=== PATIENT | female | born 1955 | race Caucasian/White ===

== ENCOUNTER 2017-07-07 07:07 | Inpatient (IN) | payer OTHER ==
[~2017-07-07] VITALS: Ht 162.6 cm; Wt 74.8 kg
--- NOTE | 2017-07-07 07:52 | ED SYNCOPE COMPLAINT ---
History of Present Illness General Chief Complaint: Nausea, Vomiting, Diarrhea Stated Complaint: V/N/D PER PT PASSED OUT WHILE ON TOILET HIT FACE Source: patient, family, old records Exam Limitations: no limitations Vital Signs & Intake/Output Vital Signs & Intake/Output Vital Signs Date Time Temp Pulse Resp B/P B/P Pulse O2 O2 Flow FiO2 Mean Ox Delivery Rate 07/07 1250 98.7 110 20 114/75 98 Room Air 07/07 1100 94 102/60 02 1017 98.3 103 20 125/76 97 Room Air 07/07 0713 97.4 114 15 123/86 97 Room Air Room Air Allergies Coded Allergies: No Known Allergies (07/07/17) Reconcile Medications No Known Home Medications Triage Note: PT TO ED FOR C/C OF MULTIPLE EPISODES OF VOMITING AND DIARRHEA SINCE 99. AROUND 0, PT HAD A SYNCOPAL EPISODE WHEN PT WAS VOMITING AND THEN PASSED OUT (UNKNOWN HOW LONG), AND WOKE UP WITH BRUISE TO L EYE AREA. +NECK PAIN. DENIES CHANGE IN VISION. Triage Nurses Notes Reviewed? yes Timing: recent history Context: multiple episodes of diarrhea Loss of Consciousness: unsure Associated Symptoms: nausea/vomiting HPI: 61-year-old female with no medical history presents to the ER for evaluation stating that since 1:00 this morning she's had multiple episodes of nausea vomiting and diarrhea associated with lower abdominal cramping aching pain. The patient states around 4:30 in the morning she was sitting on a toilet when she states the next thing she recalls she woke up with her face against the vanity which is in front of the toilet. She is unsure how long she passed out for. She denies any associated chest pain shortness of breath. She states she's felt lightheaded this morning. She denies tobacco or alcohol use. The patient has a history of a tubal ligation and abdominoplasty. She is also complaining of bilateral neck pain and bruising around her left eye from the head strike into the vanity. She has not taken anything for symptoms. No vision changes epistaxis. No back arm or leg pain. (Yuliana HARDY,Billy) Past History Travel History Traveled to [place] past 21 day No Medical History Any Pertinent Medical History? none Neurological: NONE EENT: NONE Cardiovascular: NONE Respiratory: NONE Gastrointestinal: NONE Hepatic: NONE Renal: NONE Musculoskeletal: NONE Psychiatric: NONE Endocrine: NONE Blood Disorders: NONE Cancer(s): NONE Surgical History Surgical History: tubal ligation, ABDOMINOPLASTY Psychosocial History What is your primary language Latvian Tobacco Use: Quit >30 days ago ETOH Use: occasional use Illicit Drug Use: denies illicit drug use Family History Hx Contributory? No (Billy Agarwal) Review of Systems Review of Systems Constitutional: Reports: see HPI. Comments Review of systems: See HPI, All other systems negative. Constitutional, no chills no fever, HEENT: no sore throat no congestion Cardiovascular: No chest pain Skin: no rashes, no change in skin Respiratory: No dyspnea no cough no sputum GI: SEE HPI : No dysuria No hematuria, no frequency Muscle skeletal: No joint pain, no back pain Neurologic: headache Psych: No stress Heme/endocrine: No bruising Immunology: No lymphadenopathy (Billy Agarwal) Physical Exam Physical Exam General Appearance: well developed/nourished, alert, awake Cranial Nerves: normal hearing, normal speech, PERRL Comments: Well-developed well-nourished person in no acute distress HEENT: Small area of ecchymosis noted under the left eye there is no hyphema, the rest of the face is atraumatic and nontender no scalp hematoma, Normal EENT exam; PERRL, EOMI, no nystagmus. moist mucous membranes. Neck: Supple, nontender, normal range of motion without pain or tenderness Back: Nontender. Full range of motion Cardiovascular: Regular rate and rhythms no murmur Respiratory: No respiratory distress. Patient speaking in full complete sentences. Breath sounds clear to auscultation bilaterally: NO W/R/R Abdomen: Soft, nontender nondistended, no appreciable organomegaly. Normal bowel sounds. No rebound/guarding, Extremity: No edema, full range of motion of extremities, 5 out of 5 strength noted to bilateral upper and lower extremities, full sensation noted to b/l ue and le Neuro: Alert oriented x3, motor sensory normal, cranial nerves II through XII grossly intact. There were no obvious focal neurologic abnormalities. Skin: No appreciable rash on exposed skin, skin is warm and dry. Psych: Mood and affect is normal, memory and judgment is normal. Core Measures ACS in differential dx? Yes CVA/TIA Diagnosis: No Sepsis Present: No Sepsis Focused Exam Completed? No (Yuliana HARDY,Billy) Progress Differential Diagnosis: orthostatic syncope, other valvular disease, vasodepressor syncope, gastroenteritis, colitis, diverticulitis, ischemic colitis, electrolyte abnormalty, dehydaration, ami Plan of Care: Orders Procedure Date/time Status Regular Diet 07/07 L Complete Heart Healthy Diet 07/07 D Active TROPONIN LEVEL 07/07 1500 Active ED Holding Orders 07/07 1356 Active Admit to inpatient 07/07 1356 Active EKG 07/07 1307 Active ECHOCARDIOGRAM 07/07 1257 Active Lab Add-on Test 07/07 1254 Active Pathway - chart 07/07 1236 Active House Staff 07/07 1236 Active Patient Data 07/07 1231 Active ED Holding Orders 07/07 1218 Active Vital Signs 07/07 1218 Active Code Status 07/07 1218 Active Add-on Test (ER Only) 07/07 1027 Active EKG 07/07 1027 Active Add-on Test (ER Only) 07/07 1018 Active Telemetry/Legal Department Manager 07/07 1013 Active PARTIAL THROMBOPLASTIN TIME 07/07 1013 Complete PROTHROMBIN TIME 07/07 1013 Complete Add-on Test (ER Only) 07/07 1007 Active Add-on Test (ER Only) 07/07 0949 Active ETHANOL 07/07 0902 Complete Intake & Output 07/07 0829 Active MISTAKE 07/07 0720 Active URINALYSIS 07/07 0720 Complete TROPONIN LEVEL 07/07 0720 Complete LIPASE 07/07 0720 Complete COMPREHENSIVE METABOLIC PANEL 07/07 0720 Complete CBC WITHOUT DIFFERENTIAL 07/07 0720 Complete AMYLASE 07/07 0720 Complete EKG 07/07 0717 Active VTE Mechanical Prophylaxis 07/07 UNK Active MISTAKE 07/07 UNK Active Current Medications Sig/[place] Start time Last Medication Dose Stop Time Status Admin Enoxaparin Sodium 40 MG DAILY 07/08 1000 AC (Lovenox) Ibuprofen 800 MG TID 07/07 1600 AC (Motrin) Acetaminophen 500 MG Q6P PRN 07/07 1400 AC (Tylenol) Laboratory Tests 07/07/17 1420: Urine Color YEL, Urine Clarity CLEAR, Urine pH 6.5, Ur Specific Mershon 1.010, Urine Protein NEG, Urine Ketones NEG, Urine Nitrite NEG, Urine Bilirubin NEG, Urine Urobilinogen 0.2, Ur Leukocyte Esterase NEG, Ur Microscopic EXAM NOT REQUIRED, Urine Hemoglobin NEG, Urine Glucose NEG 07/07/17 1130: PT 11.6, INR 1.11, APTT 24 L 07/07/17 0902: Anion Gap 12, Estimated GFR > 60, BUN/Creatinine Ratio 40.0 H, Glucose 121 H, Calcium 9.1, Total Bilirubin 0.8, AST 20, ALT 21, Alkaline Phosphatase 65, Troponin I < 0.01, Total Protein 6.8, Albumin 4.0, Globulin 2.8, Albumin/ Globulin Ratio 1.4, Amylase 52, Lipase 70, CBC w Diff MAN DIFF ORDERED, RBC 5.12 , MCV 87.8, MCH 29.1, MCHC 33.1, RDW 13.0, MPV 7.7, Gran % 96.2 H, Lymphocytes % 1.8 L, Monocytes % 1.5 L, Eosinophils % 0.4, Basophils % 0.1, Absolute Granulocytes 8.2 H, Segmented Neutrophils 86 H, Band Neutrophils 7 H, Absolute Lymphocytes 0.2 L, Lymphocytes 3 L, Monocytes 4, Absolute Monocytes 0.1, Absolute Eosinophils 0, Absolute Basophils 0, Platelet Estimate ADEQUATE, Normocytic RBCs VERIFIED, Normochromic RBCs VERIFIED, Serum Alcohol < 10.0 orthos negative, labs ordered, pt med with iv fluids, zofran 4mg iv, pepcid 20mg iv, tylenol 1g iv. ct ordered 950 I discussed with joanna and her son her ct findings and labs to date, pain persists, morphine 2mg iv ordered, c collar placed. call placed to neurosurg 1010 CASE D/W DR PAREDES WHO REVIEWED THE CT SCAN, ADVISED TO GET CTA OF NECK, LONG NO VESSEL INJURY PATIENT COULD BE DISCHARGED AND FOLLOW UP WITH HIM AN OUTPT FROM HIS STANDPOINT- FX ARE NOT UNSTABLE. NO NEED FOR EMERGENT MRI HOWEVER WOULD LIKE CTA AT THIS TIME. HE DOES NOT FEEL PT REQUIRES TRANSFER AT THIS TIME BASED ON CSPINE INJURIES. I DISCUSSED WITH THE PT AND HER SON PLAN OF CARE, SHE IS RESTING IN NAD AT THIS TIME As nurse was attempting to place second IV line patient had witnessed syncopal episode she remained normal sinus on the monitor Dr. Lyle at bedside, IV fluids are running patient immediately came to speaking in full complete sentences no slurred speech no neuro deficits. 1220 DR PAREDES IN DEPT TO EVAL PT I discussed the patient hurt CAT scan results she denies abdominal pain resting comfortably Dr. Lyle spoke with Dr. Guevara we'll admit to telemetry. Diagnostic Imaging: Viewed by Me: CT Scan. Discussed w/RAD: CT Scan. Radiology Impression: PATIENT: JOANNA HUERTA PRESENT AGE: 61 PATIENT ACCOUNT NO: [id number] : 54 LOCATION: ER ORDERING PHYSICIAN: Billy HARDY SERVICE DATE: 07/07/17 EXAM TYPE: CAT - CT ABD & PELVIS W/O IV CONTRAS EXAMINATION: CT ABDOMEN AND PELVIS WITHOUT CONTRAST CLINICAL INFORMATION: Left lower quadrant abdominal pain. Nausea, vomiting, diarrhea. Syncope. Presumptive diagnosis: Colitis, diverticulitis. COMPARISON: None TECHNIQUE: Multidetector volumetric imaging was performed from the superior aspect of the liver through the pubic symphysis. Sagittal and coronal reformatted images were obtained on the technologist's workstation. DLP: 314.37 mGy-cm FINDINGS: LUNG BASES: The visualized lung bases are unremarkable. LIVER, GALLBLADDER, AND BILIARY TREE: The liver is normal in size, shape, and attenuation. No focal hepatic lesion or biliary ductal dilatation is present. The gallbladder is unremarkable with no evidence of radiopaque gallstones, gallbladder wall thickening, or obvious pericholecystic inflammatory changes. PANCREAS: Unremarkable. SPLEEN: Unremarkable. ADRENAL GLANDS: Unremarkable. KIDNEYS AND URETERS: The kidneys are normal in size, shape, and attenuation. No hydronephrosis, hydroureter, or calculi are seen. No perinephric stranding. BLADDER: Unremarkable. GASTROINTESTINAL TRACT: There are scattered colonic diverticula. There is no evidence of diverticulitis. There is no definite colonic wall thickening to suggest colitis. The appendix appears normal. There are 2 loops of jejunum in the mid abdomen which are upper normal in caliber. There is no definite bowel wall thickening. The small bowel is otherwise unremarkable. ABDOMINAL WALL: No significant hernia is appreciated. LYMPH NODES: Normal. VASCULAR: Unremarkable. PELVIC VISCERA: Unremarkable. OSSEOUS STRUCTURES : There is severe degenerative disc disease at L3-L4 with a mild grade 1 anterolisthesis of L3 on L4. There is mild degenerative disc disease at L4-L5. IMPRESSION: 1. Mild colonic diverticulosis with no evidence of diverticulitis. No colonic wall thickening to suggest suggest colitis. 2. There are 2 loops of jejunum in the mid abdomen which are upper normal in caliber but there is no evidence of small bowel wall thickening. 3. No other evidence of inflammatory process in the abdomen or pelvis. DICTATED BY: Jem Joshi MD DATE/TIME DICTATED:07/07/17932 PLACEMENT SPECIALIST:EVIE DATE/TIME TRANSCRIBED:932 CONFIDENTIAL, DO NOT COPY WITHOUT APPROPRIATE AUTHORIZATION. < Electronically signed in Other Vendor System> SIGNED BY: Jem Joshi MD 07/07/17 1003, PATIENT: JOANNA HUERTA PRESENT AGE: 61 PATIENT ACCOUNT NO: [id number] : 54 LOCATION: [facility] ORDERING PHYSICIAN: Billy HARDY SERVICE DATE: 07/07/17 EXAM TYPE: CAT - CT CERV SPINE WO IV CONTRAST; CT HEAD WO IV CONTRAST CT HEAD WITHOUT IV CONTRAST CT CERVICAL SPINE WITHOUT IV CONTRAST INDICATION: Fall. COMPARISON: None available. TECHNIQUE: Multidetector CT acquisitions of the head and cervical spine were obtained without IV contrast. Multiplanar reformats were acquired and utilized for image interpretation. FINDINGS: HEAD: There is no intracranial hemorrhage, hydrocephalus, extra-axial surface collection, midline shift, or other herniation pattern. Hdez to white matter differentiation is diffusely maintained without evidence of an evolved acute territorial infarct. The basilar cisterns are preserved. No significant soft tissue abnormality. No acute osseous abnormality. The paranasal sinuses and the mastoid air cells are well-aerated. CERVICAL SPINE: There is a fracture through the C4 spinous process extending to the undersurface of the right C4 lamina. There is also a fracture through the posterolateral wall of the right C4 bony foramen transversarium that can be followed with a CTA of the neck to exclude a vertebral artery dissection. Small osteophyte versus inferior endplate avulsion fragment on the left at C4. Given this finding, a MRI of the cervical spine would be helpful in excluding the presence of ligamentous injury and/or epidural collections. There is also a fracture through the C5 spinous process with a small spinous process avulsion fracture fragment posteriorly. There is slight anterolisthesis of C2 on C3 and C3 on C4. There is mild anterolisthesis of C7 on T1, T1 and T2, and T2 on T3. There is slight superior endplate height loss at T3 of indeterminate age. The craniocervical and atlantoaxial articulations are normal. There is no prevertebral soft tissue swelling. Multinodular thyroid gland. The visualized lung apices are clear. IMPRESSION: - There is a fracture through the C4 spinous process extending to the undersurface of the right C4 lamina. There is also a fracture through the posterolateral wall of the right C4 bony foramen transversarium that can be followed with a CTA of the neck to exclude a vertebral artery dissection. Small osteophyte versus inferior endplate avulsion fragment on the left at C4. Given this finding, a MRI of the cervical spine would be helpful in excluding the presence of ligamentous injury and/or epidural collections. - There is also a fracture through the C5 spinous process with a small spinous process avulsion fracture fragment posteriorly. - There is slight superior endplate height loss at T3 of indeterminate age. - No acute intracranial abnormality. -Multinodular thyroid gland. DICTATED BY: Dirk Murillo MD DATE/TIME DICTATED:07/07/17925 PLACEMENT SPECIALIST:EVIE DATE/TIME TRANSCRIBED:07/07/17925 CONFIDENTIAL, DO NOT COPY WITHOUT APPROPRIATE AUTHORIZATION. <Electronically signed in Other Vendor System> SIGNED BY: Dirk Murillo MD 07/07/1741, PATIENT: JOANNA HUERTA PRESENT AGE: 61 PATIENT ACCOUNT NO: [id number] : 54 LOCATION: [facility] ORDERING PHYSICIAN: Billy HARDY SERVICE DATE: 07/07/17 EXAM TYPE: CAT - CT NECK ANGIOGRAM CT ANGIOGRAM NECK CLINICAL INFORMATION: Rule out vertebral artery dissection. C4-C5 fracture. COMPARISON: Cervical spine CT performed earlier the same day. TECHNIQUE: Test bolus sequences followed by administration of 125 mL of Omnipaque 350 intravenous contrast. Helical imaging was performed in the axial plane of the neck. The data was processed at the cardiovascular radiologic technologist workstation for generation of MIP sequences. Three-dimensional volume rendered reformatted images were also generated at an offline 3-D workstation. Stenoses graded per NASCET criteria. FINDINGS: There is a 3 great vessel branch configuration off of the aortic arch. The great vessel origins are widely patent. The proximal left subclavian artery is tortuous. The right vertebral artery is dominant. There is no evidence of traumatic arterial injury. There are no intraluminal filling defects and there is no luminal caliber change along the course of the vertebral arteries on either side. The common carotid arteries, the carotid bifurcations, and the cervical internal carotid artery segments are widely patent. The intracranial arterial vasculature is unremarkable. Stable appearing fracture through the C4 spinous process extending to the undersurface of the right C4 lamina. There is also a fracture through the posterolateral wall of the right C4 bony foramen transversarium. Small osteophyte versus inferior endplate avulsion fragment on the left at C4. Given this finding, a MRI of the cervical spine would be helpful in excluding the presence of ligamentous injury and/or epidural collections. There is also a fracture through the C5 spinous process with a small spinous process avulsion fracture fragment posteriorly. Degenerative changes throughout the cervical spine are described in detail on the recent cervical spine CT. Stable appearing superior end plate height loss at T3 of indeterminate age. The imaged upper lungs are clear. There is a 1.4 cm right thyroid lobe nodule that should be further assessed with a nonemergent ultrasound. There are no additional significant soft tissue findings within the neck. IMPRESSION: - Stable appearing C4 and C5 fractures as discussed in detail on the cervical spine CT performed earlier today. - There is no evidence of traumatic arterial injury/arterial dissection. No significant arterial stenoses and no acute arterial occlusions within the neck. - Stable appearing indeterminate age superior endplate height loss at T3. - There is a 1.4 cm right thyroid lobe nodule that should be further assessed with a nonemergent ultrasound. DICTATED BY: Dirk Murillo MD DATE/ TIME DICTATED:07/07/171199 PLACEMENT SPECIALIST:EVIE DATE/TIME TRANSCRIBED: 07/07/171199 CONFIDENTIAL, DO NOT COPY WITHOUT APPROPRIATE AUTHORIZATION. < Electronically signed in Other Vendor System> SIGNED BY: Dirk Murillo MD 07/07/17 1213 Initial ED EKG: stach at 100, no acute st seg changes, normala axis Rhythm Strip: normal sinus rhythm (Billy Agarwal) Comments: During a blood draw patient began to feel very lightheaded and had a witnessed syncopal episode. Patient was on telemetry and she remained in normal sinus rhythm during. An EKG was obtained which showed sinus rhythm with no ST-T changes. Patient's pain in her blood pressure was 70 over palp. Once patient was laid supine she came to. (Norman Lyle MD) Departure Departure Time of Disposition: 1225 Disposition: STILL A PATIENT Condition: Stable Referrals: Yaima Rueda MD (PCP/Family) Departure Forms: Customer Survey General Discharge Information Prescriptions: Current Visit Scripts No Known Home Medications Admission Note Spoke With: James Nava MD Documentation of Exam: Documentation of any treatments & extenuating circumstances including Concerns Regarding Discharge (functional status, medication knowledge or non-compliance, living conditions, etc.) that warrant an admission rather than observation: Neurosurgery consult cardiology consult telemetry monitoring IV fluids IV pain medication possible PT consult premature discharge would BE medically harmful (Billy Agarwal) Departure Clinical Impression Primary Impression: C4 cervical fracture Qualifiers: Encounter type: initial encounter Fracture type: closed Fracture morphology: other fracture Secondary Impressions: C5 vertebral fracture Qualifiers: Encounter type: initial encounter Fracture type: closed Fracture morphology: unspecified fracture morphology Nausea vomiting and diarrhea Syncope Qualifiers: Syncope type: unspecified Qualified Code: R55 - Syncope and collapse Admission Note Documentation of Exam: Documentation of any treatments & extenuating circumstances including Concerns Regarding Discharge (functional status, medication knowledge or non-compliance, living conditions, etc.) that warrant an admission rather than observation: Observation Note Rationale for Observation: My rational for observation is as follows . PA/GRADER MEAT Co-Sign Statement Statement: ED Attending supervision documentation- [X] I saw and evaluated the patient. I have also reviewed all the pertinent lab results and diagnostic results. I agree with the findings and the plan of care as documented in the PA's/GRADER MEAT's documentation. [X] I have reviewed the ED Record and agree with the PA's/GRADER MEAT's documentation. [] Additions or exceptions (if any) to the PAs/GRADER MEAT's note and plan are summarized below: [Patient had a syncopal episode with no prodromal symptoms this morning. Patient has a C4 and C5 fracture. Patient has been seen by neurosurgery. Patient will require admission to the hospital for telemetry monitoring and serial enzymes. She will need cardiology evaluation and workup. She will need physical therapy evaluation and workup. It is unknown at this time with the patient will require short-term rehabilitation.] (Norman Lyle MD) Critical Care Note Critical Care Note Critical Care Time: 30-74 min (Billy Agarwal)
[2017-07-07 09:11] LABS: ABSOLUTE BASOPHIL COUNT 0 /CUMM (0.0-0.2); ABSOLUTE EOSINOPHIL COUNT 0 /CUMM (0.0-0.7); ABSOLUTE GRANULOCYTE CT 8.2 /CUMM (1.4-6.5); ABSOLUTE LYMPH COUNT 0.2 /CUMM (1.2-3.4); ABSOLUTE MONOCYTE COUNT 0.1 /CUMM (0.10-0.60); BASOPHIL % 0.1 % (0.0-2.0); EOSINOPHIL % 0.4 % (0-5); MEAN CORPUSCULAR HGB 29.1 PG (27.0-31.0); MEAN CORPUSCULAR HGB CONC 33.1 G/DL (33.0-37.0); MEAN CORPUSCULAR VOLUME 87.8 FL (81.0-99.0); MEAN PLATELET VOLUME 7.7 FL (7.4-10.4); PLATELET COUNT 211 /CUMM (130-400); RED BLOOD CELL CT 5.12 /CUMM (4.20-5.40); WHITE BLOOD CELL COUNT 8.6 /CUMM (4.8-10.8)
[2017-07-07 09:34] LABS: GRANULOCYTE % 96.2 % (42.2-75.2)
--- NOTE | 2017-07-07 09:41 | CT SCAN REPORT ---
CT HEAD WITHOUT IV CONTRAST CT CERVICAL SPINE WITHOUT IV CONTRAST INDICATION: Fall. COMPARISON: None available. TECHNIQUE: Multidetector CT acquisitions of the head and cervical spine were obtained without IV contrast. Multiplanar reformats were acquired and utilized for image interpretation. FINDINGS: HEAD: There is no intracranial hemorrhage, hydrocephalus, extra-axial surface collection, midline shift, or other herniation pattern. Hdez to white matter differentiation is diffusely maintained without evidence of an evolved acute territorial infarct. The basilar cisterns are preserved. No significant soft tissue abnormality. No acute osseous abnormality. The paranasal sinuses and the mastoid air cells are well-aerated. CERVICAL SPINE: There is a fracture through the C4 spinous process extending to the undersurface of the right C4 lamina. There is also a fracture through the posterolateral wall of the right C4 bony foramen transversarium that can be followed with a CTA of the neck to exclude a vertebral artery dissection. Small osteophyte versus inferior endplate avulsion fragment on the left at C4. Given this finding, a MRI of the cervical spine would be helpful in excluding the presence of ligamentous injury and/or epidural collections. There is also a fracture through the C5 spinous process with a small spinous process avulsion fracture fragment posteriorly. There is slight anterolisthesis of C2 on C3 and C3 on C4. There is mild anterolisthesis of C7 on T1, T1 and T2, and T2 on T3. There is slight superior endplate height loss at T3 of indeterminate age. The craniocervical and atlantoaxial articulations are normal. There is no prevertebral soft tissue swelling. Multinodular thyroid gland. The visualized lung apices are clear. IMPRESSION: - There is a fracture through the C4 spinous process extending to the undersurface of the right C4 lamina. There is also a fracture through the posterolateral wall of the right C4 bony foramen transversarium that can be followed with a CTA of the neck to exclude a vertebral artery dissection. Small osteophyte versus inferior endplate avulsion fragment on the left at C4. Given this finding, a MRI of the cervical spine would be helpful in excluding the presence of ligamentous injury and/or epidural collections. - There is also a fracture through the C5 spinous process with a small spinous process avulsion fracture fragment posteriorly. - There is slight superior endplate height loss at T3 of indeterminate age. - No acute intracranial abnormality. -Multinodular thyroid gland.
--- NOTE | 2017-07-07 10:03 | CT SCAN REPORT ---
EXAMINATION: CT ABDOMEN AND PELVIS WITHOUT CONTRAST CLINICAL INFORMATION: Left lower quadrant abdominal pain. Nausea, vomiting, diarrhea. Syncope. Presumptive diagnosis: Colitis, diverticulitis. COMPARISON: None TECHNIQUE: Multidetector volumetric imaging was performed from the superior aspect of the liver through the pubic symphysis. Sagittal and coronal reformatted images were obtained on the technologist's workstation. DLP: 314.37 mGy-cm FINDINGS: LUNG BASES: The visualized lung bases are unremarkable. LIVER, GALLBLADDER, AND BILIARY TREE: The liver is normal in size, shape, and attenuation. No focal hepatic lesion or biliary ductal dilatation is present. The gallbladder is unremarkable with no evidence of radiopaque gallstones, gallbladder wall thickening, or obvious pericholecystic inflammatory changes. PANCREAS: Unremarkable. SPLEEN: Unremarkable. ADRENAL GLANDS: Unremarkable. KIDNEYS AND URETERS: The kidneys are normal in size, shape, and attenuation. No hydronephrosis, hydroureter, or calculi are seen. No perinephric stranding. BLADDER: Unremarkable. GASTROINTESTINAL TRACT: There are scattered colonic diverticula. There is no evidence of diverticulitis. There is no definite colonic wall thickening to suggest colitis. The appendix appears normal. There are 2 loops of jejunum in the mid abdomen which are upper normal in caliber. There is no definite bowel wall thickening. The small bowel is otherwise unremarkable. ABDOMINAL WALL: No significant hernia is appreciated. LYMPH NODES: Normal. VASCULAR: Unremarkable. PELVIC VISCERA: Unremarkable. OSSEOUS STRUCTURES: There is severe degenerative disc disease at L3-L4 with a mild grade 1 anterolisthesis of L3 on L4. There is mild degenerative disc disease at L4-L5. IMPRESSION: 1. Mild colonic diverticulosis with no evidence of diverticulitis. No colonic wall thickening to suggest suggest colitis. 2. There are 2 loops of jejunum in the mid abdomen which are upper normal in caliber but there is no evidence of small bowel wall thickening. 3. No other evidence of inflammatory process in the abdomen or pelvis.
[2017-07-07 11:55] LABS: PT 11.6 SEC (9.4-12.5); PTT 24 SEC (25-37)
--- NOTE | 2017-07-07 12:13 | CT SCAN REPORT ---
CT ANGIOGRAM NECK CLINICAL INFORMATION: Rule out vertebral artery dissection. C4-C5 fracture. COMPARISON: Cervical spine CT performed earlier the same day. TECHNIQUE: Test bolus sequences followed by administration of 125 mL of Omnipaque 350 intravenous contrast. Helical imaging was performed in the axial plane of the neck. The data was processed at the public health technologist workstation for generation of MIP sequences. Three-dimensional volume rendered reformatted images were also generated at an offline 3-D workstation. Stenoses graded per NASCET criteria. FINDINGS: There is a 3 great vessel branch configuration off of the aortic arch. The great vessel origins are widely patent. The proximal left subclavian artery is tortuous. The right vertebral artery is dominant. There is no evidence of traumatic arterial injury. There are no intraluminal filling defects and there is no luminal caliber change along the course of the vertebral arteries on either side. The common carotid arteries, the carotid bifurcations, and the cervical internal carotid artery segments are widely patent. The intracranial arterial vasculature is unremarkable. Stable appearing fracture through the C4 spinous process extending to the undersurface of the right C4 lamina. There is also a fracture through the posterolateral wall of the right C4 bony foramen transversarium. Small osteophyte versus inferior endplate avulsion fragment on the left at C4. Given this finding, a MRI of the cervical spine would be helpful in excluding the presence of ligamentous injury and/or epidural collections. There is also a fracture through the C5 spinous process with a small spinous process avulsion fracture fragment posteriorly. Degenerative changes throughout the cervical spine are described in detail on the recent cervical spine CT. Stable appearing superior end plate height loss at T3 of indeterminate age. The imaged upper lungs are clear. There is a 1.4 cm right thyroid lobe nodule that should be further assessed with a nonemergent ultrasound. There are no additional significant soft tissue findings within the neck. IMPRESSION: - Stable appearing C4 and C5 fractures as discussed in detail on the cervical spine CT performed earlier today. - There is no evidence of traumatic arterial injury/arterial dissection. No significant arterial stenoses and no acute arterial occlusions within the neck. - Stable appearing indeterminate age superior endplate height loss at T3. - There is a 1.4 cm right thyroid lobe nodule that should be further assessed with a nonemergent ultrasound.
--- NOTE | 2017-07-07 12:32 | History & Physical ---
Juanjo COLEMAN,Daniel 07/07/17 1232: General Information and HPI MD Statement: I have seen and personally examined JOANNA HUERTA and documented this H&P. The patient is a 61 year old F who presented with a patient stated chief complaint of syncope.. Exam Limitations: no limitations History of Present Illness: 61-year-old female with no medical history presents to the ED with chief complaint of vomiting/diarrhea and an episode of loss of consciousness. She reports around 1 am today, she experienced vague diffuse abdominal pain which resulted in nonbloody vomitus and diarrhea. At around 4 AM she proceeded to the bathroom for another episode of diarrhea and without any premonition she found herself on the floor with her face planted down. She does not remember for how long she had lost consciousness, she then decided crawl out of the bathroom and proceeded to calling out for help . She was not reported to have had any focal neurological deficit such as facial droopiness or dysarthria. No report of any postictal confusion or bladder or urinary incontinence. Denies any prodromal symptoms such as such as lightheadedness, dizziness,cp/palpitation prior to the syncopal event. He does not endorse any recent history of illness,sick contacts or decreased fluid intake. Daughter was by bedside and is reporting that she has recently notice that the patient having transient mild episodes of slight head tremors and mild fortgetfulness. 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 Allergies/Medications Allergies: Coded Allergies: No Known Allergies (07/07/17) Home Med list No Known Home Medications Past History Travel History Traveled to [place] past 21 day No Medical History Neurological: NONE EENT: NONE Cardiovascular: NONE Respiratory: NONE Gastrointestinal: NONE Hepatic: NONE Renal: NONE Musculoskeletal: NONE Psychiatric: NONE Endocrine: NONE Blood Disorders: NONE Cancer(s): NONE Surgical History Surgical History: tubal ligation, ABDOMINOPLASTY Past Family/Social History Psychosocial History ETOH Use: occasional use Illicit Drug Use: denies illicit drug use Review of Systems Review of Systems Constitutional: Reports: see HPI. Exam & Diagnostic Data Last 24 Hrs of Vital Signs/I&O Vital Signs Date Time Temp Pulse Resp B/P B/P Pulse O2 O2 Flow FiO2 Mean Ox Delivery Rate 07/07 1250 98.7 110 20 114/75 98 Room Air 07/07 1100 94 102/60 0208 1017 98.3 103 20 125/76 97 Room Air 07/07 0713 97.4 114 15 123/86 97 Room Air Room Air Intake & Output 07/07 1600 07/07 0800 07/07 0000 Intake Total 1000 Output Total Balance 1000 Intake, IV 1000 Intake, Oral 0 Patient 74.843 kg Weight Weight Reported by Patient Measurement Method Physical Exam General Appearance Alert, Oriented X3, Cooperative Skin No Significant Lesion, echymotic areas arounf left eye Skin Temp/Moisture Exam: Warm/Dry Sepsis Skin Exam (color): Normal for Ethnicity HEENT PERRLA, ecchymosis around the left eye, no edema or profound swelling, rest of neck is atruamatic Neck Supple, No JVD Lymphatic Cervical nl Cardiovascular Regular Rate, Normal S1, Normal S2, No Murmurs Lungs Clear to Auscultation, Normal Air Movement Abdomen Normal Bowel Sounds, Soft, No Tenderness Neurological Normal Gait, Normal Speech, Strength at 5/5 X4 Ext, Sensation Intact, Cranial Nerves 3-12 NL, Reflexes 2+ Extremities No Clubbing, No Cyanosis Vascular Normal Pulses, Pulses Symmetrical Assessment/Plan Assessment: Impression * Syncope (2 episodes). Given the acute onset of gastroenteritis with diarrhea and vomiting and laboratory finding of elevated BUN/creatinine ratio, orthostatic hypotension from dehydration is a possible etiology of patient syncope. However it is noted that patient was orthostatic negative during admission. Syncope of cardiac etiology is always a concern.However the fact that patient does not have any past medical history of structural cardiac abnormalities such as valvular pathology, no known history of conduction abnormalities, no symptoms of chest pain, palpitation, shortness of breath, and unremarkable EKG and troponin; her cardiac etiology is less likely. Vasovagal syncope is the most , and benign cause of syncope and can be considered as a diagnosis of exclusion. There are some strong mitigating factors which strongly suggests that the patient syncope is most likely from vasovagal phenomenon. These factors are: that her first episode was in the bathroom while having a bowel movement and the second one was preceded by a strong premonition during the multiple attempts of a phlebotomy draw. Seizures rather than syncope is always considered when a patient has episodes of loss of consciousness, however given the lack of seizure-like activity especially during the second witnessed episode, no postictal confusion or loss of bladder/bowel continence, seizures are less likely to be the patient's cause of symptoms. Unsure of the significance of recent reported transient episodes of patient's head slight tremors(according to the daughter). Syncope is one of the most undereported symptom of a pulmonary embolism, her tachycardia is probably from dehydrating from gastroeneteritis rather than possibel PE, and she is saturating well on RA. However, her tachycardia, could also be concerning for a PE considering 2 episodes of syncope today. She does endorse some lower extremity tenderness, workup for a possible VTE is not unreasonable. * Cervical fractures secondary to trauma from syncopal episode.. Stable C4-C5 fracture based on radiological finding of CT neck. Those concern of arterial dissection however the lack of focal neurological deficits and a negative CT of the neck makes this less likely scenario. * Gastric enteritis. Possibly viral. Tums seem to have resolved for now was no report of any blood from either vomitus or bowel, Jovanna therefore there is no need for further follow-up such as stool culture and fecal analysis. Is reasonable to assume that this was a case of possible viral gastroenteritis. * Incidental finding of right lobe thyroid nodule. Measuring 1.[address] neck. No reports of thyroid symptoms such as increased weight gain or weight loss, palpitations, bradycardia Leann vision problems or other thyroid symptoms. Plan Admit to Telemetry for close cardiac monitoring of arythmias and conduction abnormalities Trend trops to r/o ACS Echocardiogram Check orthostats now and qshift Supportive/symptomatic care for c3-c4 fracture Adequate pain control Await further neurosurgery reccs on managament of stable fracture Check TSH and setting of thyroid nodule Consider non emergent u/s for evaluation of thyroid nodule As Ranked By This Provider Problem List: 1. Syncope Qualifiers Syncope type: unspecified Qualified Code: R55 - Syncope and collapse 2. C5 vertebral fracture Qualifiers Encounter type: initial encounter Fracture type: closed Fracture morphology: unspecified fracture morphology 3. C4 cervical fracture Qualifiers Encounter type: initial encounter Fracture type: closed Fracture morphology: other fracture 4. Nausea vomiting and diarrhea Core Measures/Misc (02/13) Acute Coronary Syndrome ACS Diagnosis: No Congestive Heart Failure Congestive Heart Failure Diagnosis No Cerebrovascular Accident CVA/TIA Diagnosis: No VTE (View Protocol) VTE Risk Factors Acute Medical Illness No Mechanical VTE Prophylaxis d/t N/A MechProphylax Ordered No VTE Pharm Prophylaxis d/t NA PharmProphylax ordered Sepsis (View protocol) Sepsis Present: Rhonda Nava MDMarbingarrett 07/07/17 5948: Attending Review Statement Attending Statement Attending Statement: examined this patient, discuss w/resident/PA/ANNUAL GIVING OFFICER, agreed w/resident/PA/ANNUAL GIVING OFFICER, reviewed EMR data (avail), discussed with nursing, discussed with case mgmt, amended to note Attending Assessment/Plan: Patient seen and examined. I reviewed and agree with the H&P as documented by the resident above. Patient presented after syncope episode that led to a fall with head trauma. Just prior to this she was nauseous, vomited and had diarrhea. Emergency room she had another episode of loss of consciousness transiently while blood work was been attempted. Apparently she was stuck several times and had an aura that something was going to happen before transiently losing consciousness. She denies any similar history in the past. EKG in the emergency room shows normal sinus rhythm. She has no significant electrolyte abnormalities on her labs. She is noted to have a mild prerenal azotemia. Her orthostatic blood pressure changes were negative she did have significant increase in her pulse rate. Head CT shows no acute intracranial process however she did suffer cervical spine fracture. In emergency room she is denying headache. She is complaining of ongoing nausea but denied any further vomiting. She complains of abdominal cramping. She has had no further episodes of diarrhea. On examination she has mild infraorbital ecchymosis on the left. No other obvious sign of head trauma. She has no facial tenderness. She has no neurologic deficits. Power is 5 over 5 in all extremities. She has no sensory deficits. She has no carotid bruit. Heart sounds are regular with no audible murmur. Lungs are clear bilaterally. Abdomen is nondistended, soft and nontender with normal bowel sounds. She has mild edema of the left lower extremity compared to the right. It is nonpitting. Patient reports that this is chronic and unchanged. Problems: 1. Syncope. 2. Head trauma secondary to fall. 3. Cervical spine fracture. C4 spinous process and C5 spinous process which is small spinous process avulsion fracture fragment posteriorly.. 4. Nausea, vomiting and diarrhea; probably due to gastroenteritis. 5. Prerenal azotemia Plan: Admit to the inpatient medical service. Telemetry monitoring to rule out arrhythmia as etiology of her loss of consciousness. Obtain echocardiogram and cardiology consultation. Syncope episode appears to have a psychiatric service of the an episode of what occasions aggravated by her mild dehydrated state. Neurosurgery consultation appreciated. We'll continue management as recommended. The neurosurgery service is recommending obtain an MRI at present unless is a change in her clinical status. Obtain stat repeat head CT if patient develops any neurological deficits overnight. Obtain Doppler of the lower extremity to rule out DVT. DVT prophylaxis subcutaneous compression device overnight. She remains with no new neurologic deficits overnight subcutaneous heparin may be utilized. Continue antiemetic therapy with Zofran. Hydrate gently with half-normal saline.
--- NOTE | 2017-07-07 12:43 | Cons- Neurosurgical ---
General Information and HPI Consulting Request Date of Consult: 07/07/17 Requested By: Billy HARDY Reason for Consult: Neck pain after fall Source of Information: patient, family, old records Exam Limitations: no limitations History of Present Illness: 61-year-old right-handed white female with no significant past history who presented to the emergency room stating that since 1 AM this morning she's had multiple episodes of nausea vomiting and diarrhea ASSOCIATED with lower abdominal cramping pains. Around 4:30 in the morning she was sitting on the toilet when she had a syncopal episode. She woke up with her face against a vanity which was in front of the toilet. It is unsure how long she was not unconscious. She was then brought in by her family to the emergency room here. She complains of bilateral neck pain and bruising around her left thigh from the head strike into the vanity Allergies/Medications Allergies: Coded Allergies: No Known Allergies (07/07/17) Current Medications: Current Medications Sig/Clover Start time Last Medication Dose Route Stop Time Status Admin Acetaminophen 1,000 MG ONCE ONE 07/07 0800 DC 07/07 N/A 1 UNIT IV 07/07 0814 0828 Famotidine 20 MG ONCE ONE 07/07 0800 DC 02/08 IV / 0801 0828 Morphine Sulfate 0 .STK-MED ONE 07/07 1024 DC .ROUTE Morphine Sulfate 2 MG ONCE ONE 07/07 1000 DC 02/08 IV 02/ 1001 1020 Ondansetron HCl 4 MG ONCE ONE 07/07 0800 DC 02/08 IV / 0801 0828 Sodium Chloride 1,000 ML BOLUS ONE 07/07 1045 DC 02/ IV 07/07 1144 1158 Sodium Chloride 1,000 ML BOLUS ONE 07/07 0815 DC 02/08 IV / 0914 0828 Sodium Chloride 1,000 ML BOLUS ONE 07/07 0815 DC 02/ IV / 0914 1040 Past History Medical History Blood Transfusion Hx: No Neurological: NONE EENT: NONE Cardiovascular: NONE Respiratory: NONE Gastrointestinal: NONE Hepatic: NONE Renal: NONE Musculoskeletal: NONE Psychiatric: NONE Endocrine: NONE Blood Disorders: NONE Cancer(s): NONE CLIENT DELIVERY MANAGER/Reproductive: tubal ligation Other Medical Hx: None Surgical History Pertinent Surgical History: tubal ligation, ABDOMINOPLASTY Psychosocial History Where Do You Live? Home Who Do You Live With? spouse Services at Home: None Primary Language: Maltese Smoking Status: Never Smoked ETOH Use: occasional use Illicit Drug Use: denies illicit drug use Functional Ability ADLs Independent: dressing, eating, toileting, bathing. Ambulation: independent IADLs Independent: shopping. Employment History Employment: Retired Review of Systems Review of Systems: She denies nausea or vomiting at this point in time. She denies any chest pain or shortness of breath. She was feeling lightheaded this morning. She has no pain or dysesthesias or weakness in her extremities. There is no back or arm or leg pain There is no visual changes Review of Systems Constitutional: Denies: no symptoms. EENTM: Reports: see HPI. Cardiovascular: Denies: no symptoms. Respiratory: Denies: no symptoms. GI: Denies: no symptoms. Genitourinary: Denies: no symptoms. Musculoskeletal: Reports: see HPI. Skin: Denies: no symptoms. Neurological/Psychological: Reports: see HPI. Hematologic/Endocrine: Denies: no symptoms. Immunologic/Allergic: Denies: no symptoms. All Other Systems: Reviewed and Negative Exam & Diagnostic Data Vital Signs and I&O Vital Signs Date Time Temp Pulse Resp B/P B/P Pulse O2 O2 Flow FiO2 Mean Ox Delivery Rate 07/07 1100 94 102/60 07/07 1017 98.3 103 20 125/76 97 Room Air 07/07 0713 97.4 114 15 123/86 97 Room Air Room Air Intake & Output 07/07 1600 07/07 0800 07/07 0000 07/06 1600 07/06 0800 07/06 0000 Intake Total 0 Output Total Balance 0 Intake, Oral 0 Patient 165 lb Weight Weight Reported by Patient Measurement Method Physical Exam: Awake alert and oriented 3. Cranial nerve symmetrical. Some spasm of the paraspinous muscles of the neck. No nystagmus no dysmetria Good strength in both upper and lower extremities. No Leonardo's or Babinski. Slightly hyperreflexic at all levels to 3+ but no evidence of clonus or definite myelopathy Physical Exam General Appearance: no apparent distress Head: ecchymosis Eyes: Bilateral: normal appearance. Ears, Nose, Throat: normal pharynx Neck: wearing a hard cervical collar Respiratory: normal breath sounds Cardiovascular: regular rate/rhythm Breasts deferred Peripheral Pulses: 3+ carotid (R), 3+ carotid (L) Gastrointestinal: soft Rectal: deferred Back: muscle spasm Extremities: normal inspection Neurologic/Psych: awake, alert, oriented x 3 Cranial Nerves: normal hearing, normal speech, PERRL Reflexes: 2+: ankle (R), ankle (L). 3+: bicep (R), bicep (L), tricep (L), tricep (L), knee (R), knee (L). Skin: intact Lymphatic: no anterior cervical hannah Reproductive: Deffered Pelvic: deferred Other Physical Findings: No other significant findings Last 24 Hours of Labs: Laboratory Tests 07/07 07/07 1130 0902 Chemistry Sodium (137 - 145 mmol/L) 141 Potassium (3.5 - 5.1 mmol/L) 4.3 Chloride (98 - 107 mmol/L) 107 Carbon Dioxide (22 - 30 mmol/L) 23 Anion Gap (5 - 16) 12 BUN (7 - 17 mg/dL) 28 H Creatinine (0.5 - 1.0 mg/dL) 0.7 Estimated GFR (>60 ml/min) > 60 BUN/Creatinine Ratio (7 - 25 %) 40.0 H Glucose (65 - 99 mg/dL) 121 H Calcium (8.4 - 10.2 mg/dL) 9.1 Total Bilirubin (0.2 - 1.3 mg/dL) 0.8 AST (14 - 36 U/L) 20 ALT (9 - 52 U/L) 21 Alkaline Phosphatase (<127 U/L) 65 Troponin I (< 0.11 ng/ml) < 0.01 Total Protein (6.3 - 8.2 g/dL) 6.8 Albumin (3.5 - 5.0 g/dL) 4.0 Globulin (1.9 - 4.2 gm/dL) 2.8 Albumin/Globulin Ratio (1.1 - 2.2 %) 1.4 Amylase (30 - 110 U/L) 52 Lipase (23 - 300 U/L) 70 Coagulation PT (9.4 - 12.5 SEC) 11.6 INR (0.90 - 1.19) 1.11 APTT (25 - 37 SEC) 24 L Hematology CBC w Diff MAN DIFF ORDERED WBC (4.8 - 10.8 /CUMM) 8.6 RBC (4.20 - 5.40 /CUMM) 5.12 Hgb (12.0 - 16.0 G/DL) 14.9 Hct (37 - 47 %) 45.0 MCV (81.0 - 99.0 FL) 87.8 MCH (27.0 - 31.0 PG) 29.1 MCHC (33.0 - 37.0 G/DL) 33.1 RDW (11.5 - 14.5 %) 13.0 Plt Count (130 - 400 /CUMM) 211 MPV (7.4 - 10.4 FL) 7.7 Gran % (42.2 - 75.2 %) 96.2 H Lymphocytes % (20.5 - 51.1 %) 1.8 L Monocytes % (1.7 - 9.3 %) 1.5 L Eosinophils % (0 - 5 %) 0.4 Basophils % (0.0 - 2.0 %) 0.1 Absolute Granulocytes (1.4 - 6.5 /CUMM) 8.2 H Segmented Neutrophils (42.2 - 75.2 %) 86 H Band Neutrophils (0.0 - 5.0 %) 7 H Absolute Lymphocytes (1.2 - 3.4 /CUMM) 0.2 L Lymphocytes (20.5 - 51.1 %) 3 L Monocytes (1.7 - 9.3 %) 4 Absolute Monocytes (0.10 - 0.60 /CUMM) 0.1 Absolute Eosinophils (0.0 - 0.7 /CUMM) 0 Absolute Basophils (0.0 - 0.2 /CUMM) 0 Platelet Estimate (ADEQUATE) ADEQUATE Normocytic RBCs VERIFIED Normochromic RBCs VERIFIED Toxicology Serum Alcohol (<10 MG/DL) < 10.0 Imaging Results: CAT scan shows a fracture through the C4 spinous process extending to the undersurface of the right L4 lamina extending to the bony foramen transversarium. Fracture through C5 spinous process. Chronic anterolisthesis C2 over C3 and C3 over C4 and C7 over T1 Other Results: Pending medical workup Assessment/Plan Assessment/Plan The fractures in this woman are not unstable. At this point in time given the absence of any symptoms in her arms and legs with not [place] to do a MRI. She can be followed as an outpatient with her neck in a hard collar. Possibly at 3 weeks we could transfer her to a soft collar. Today CTA is normal breast there is no vascular injury. Findings on x-ray were discussed with Chino Contreras MD Problem List: 1. C4 cervical fracture 2. C5 vertebral fracture 3. Syncope 4. Nausea vomiting and diarrhea Other Findings/Comments: Dr. Lyle Consult Acknowledgment - Thank you for your consult request.
[2017-07-07 16:59] VITALS: BP 122/76
--- NOTE | 2017-07-07 17:08 | Admission Certification ---
Admission Certification Certification Statement - As attending physician, I certify that at the time of - admission, based on clinical presentation, severity of - symptoms, need for further diagnostic testing and - therapeutic interventions, and risk of adverse outcomes - without in-hospital treatment, in my clinical assessment, - this patient requires an acute hospital stay for a minimum - of two nights or longer. I have also considered psychsocial - factors such as support system, advanced age, financial - issues, cognitive issues, and failed out-patient treatments, - past re-admission history, safety of patient, and lack of - compliance as applicable. Specific rationale supporting this admission is: Hospitalization is required for further workup of her syncope and management of her cervical spine fracture.
--- NOTE | 2017-07-07 18:02 | ECHOCARDIOGRAM REPORT ---
JOANNA HUERTA Age: 61 : 1955 Gender: F Exam Date: 07/07/2017 14:43 Exam Location: ER Ht (in): 64 Wt (lb): 164 BSA: 1.85 BP: 114 / 75 Ordering Physician: Daniel Geiger MD Referring Physician: Daniel Geiger MD Technologist: Colette Hernandez RDCS Room Number: ER#4 Indications: PRESYNCOPE/SYNCOPE Rhythm: Technical Quality: FINDINGS Left Ventricle Small left ventricular cavity. Mild concentric left ventricular hypertrophy. Normal left ventricular wall motion. Normal left ventricular ejection fraction visually estimated at >65%. Abnormal relaxation filling pattern of the left ventricle for age (stage 1 diastolic dysfunction). Right Ventricle Normal right ventricular size and function. Right Atrium Normal right atrial size. Left Atrium Normal left atrial size. Mitral Valve Mild mitral annular calcification. Mitral valve mildly thickened. Mild mitral regurgitation. Aortic Valve Trileaflet aortic valve. No aortic valve stenosis or regurgitation. Tricuspid Valve Tricuspid valve mildly thickened. Mild tricuspid regurgitation. No evidence of pulmonary hypertension. Right ventricular systolic pressure estimated to be within the normal range at 21 mmHg. Pulmonic Valve Pulmonic valve not well visualized, grossly normal. No pulmonic regurgitation. Pericardium No pericardial effusion. Great Vessels Normal size aortic root. Normal size inferior vena cava. CONCLUSIONS Small left ventricular cavity. Mild concentric left ventricular hypertrophy. Normal left ventricular wall motion. Normal left ventricular ejection fraction visually estimated at > 65%. Abnormal relaxation filling pattern of the left ventricle for age (stage 1 diastolic dysfunction). Normal right ventricular size and function. Normal atrial size. Mild mitral regurgitation. Mild tricuspid regurgitation. No evidence of pulmonary hypertension. Chino Lane M.D. (Electronically Signed) Final Date: 07 July 2017 18:01 MEASUREMENTS (Male / Female) Normal Values 2D ECHO LV Diastolic Diameter PLAX 3.1 cm 4.2 - 5.9 / 3.9 - 5.3 cm LV Systolic Diameter PLAX 1.7 cm 2.1 - 4.0 cm LV Fractional Shortening PLAX 45.2 % 25 - 46 % LV Ejection Fraction 2D Teich 77.9 % IVS Diastolic Thickness 1.3 cm LVPW Diastolic Thickness 1.3 cm LV Relative Wall Thickness 0.8 RV Internal Dim ED PLAX 3.2 cm 1.9 - 3.8 cm LVOT Diameter 2.0 cm Aortic Root Diameter 2.6 cm LA Systolic Diameter LX 2.9 cm 3.0 - 4.0 / 2.7 - 3.8 cm LA Volume 40.0 cm 18 - 58 / 22 - 52 cm Ascending Aorta Diameter 3.0 cm DOPPLER AV Peak Velocity 162.0 cm/s AV Peak Gradient 10.5 mmHg AV Mean Velocity 123.0 cm/s AV Mean Gradient 7.0 mmHg AV Velocity Time Integral 31.5 cm LVOT Peak Velocity 118.0 cm/s LVOT Peak Gradient 5.6 mmHg LVOT Mean Velocity 80.1 cm/s LVOT Mean Gradient 3.0 mmHg LVOT Velocity Time Integral 22.4 cm LVOT Stroke Volume 70.4 cm AV Area Cont Eq vti 2.2 cm AV Area Cont Eq pk 2.3 cm MV Peak Velocity 96.1 cm/s MV Peak Gradient 3.7 mmHg MV Mean Velocity 62.6 cm/s MV Mean Gradient 2.0 mmHg Mitral E Point Velocity 74.0 cm/s Mitral A Point Velocity 94.3 cm/s Mitral E to A Ratio 0.8 MV PHT Velocity 80.5 cm/s MV Deceleration Storey 343.0 cm/s MV Pressure Half Time 70.4 ms MV Area PHT 3.1 cm MV Deceleration Time 98.0 ms TR Peak Velocity 201.0 cm/s TR Peak Gradient 16.2 mmHg Right Atrial Pressure 5.0 mmHg Pulmonary Artery Systolic Pressu 21.2 mmHg Right Ventricular Systolic Press 21.2 mmHg PV Peak Velocity 103.0 cm/s PV Peak Gradient 4.2 mmHg PV Mean Velocity 76.9 cm/s PV Mean Gradient 3.0 mmHg PV Velocity Time Integral 15.4 cm LV E' Lateral Velocity 14.2 cm/s Mitral E to LV E' Lateral Ratio 5.2 LV E' Septal Velocity 4.5 cm/s Mitral E to LV E' Septal Ratio 16.6
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
--- NOTE | 2017-07-07 20:52 | ULTRASOUND REPORT ---
EXAMINATION: US TRIPLEX OF LOWER EXTREMITIES, BILATERAL CLINICAL INFORMATION: Leg pain deep vein thrombosis. COMPARISON: None TECHNIQUE: Color-flow triplex imaging with spectral analysis and compression Doppler were performed on the lower extremities. FINDINGS: Respiratory variation, normal compression and augmented flow are noted throughout the lower extremities. The visualized common femoral vein, superficial femoral vein, profunda femoral vein, popliteal vein and midcalf peroneal and posterior tibial venous segments show no evidence of deep venous thrombosis. There is no Nunn's cyst. IMPRESSION: Normal triplex scan without evidence of deep venous thrombosis involving the lower extremities.
[2017-07-07 22:00] VITALS: BP 112/80
--- NOTE | 2017-07-08 00:48 | RADIOLOGY REPORT ---
EXAMINATION: XR PORTABLE CHEST CLINICAL INFORMATION: Syncope. COMPARISON: None TECHNIQUE: Portable frontal view of the chest was obtained. 10:25 PM FINDINGS: No significant abnormality is noted involving the heart, lungs, mediastinum, bony thorax or soft tissues. IMPRESSION: Unremarkable examination.
[2017-07-08 06:30] VITALS: BP 122/68
--- NOTE | 2017-07-08 07:37 | PN- Housestaff ---
Juanjo COLEMAN,Daniel 07/08/17 0737: Subjective Follow-up For: syncope cervical fracture Prerenal azotemia Subjective: Seen and examined at bedside. No longer complains of significant nausea. She however endorses upper repsiratory symptoms of cough, and sinus congestion, but no fever. Flu test -ve and she remains afebrile. She states "I think i might be catching something". Review of Systems Constitutional: Reports: see HPI. Objective Last 24 Hrs of Vital Signs/I&O Vital Signs Date Time Temp Pulse Resp B/P B/P Pulse O2 O2 Flow FiO2 Mean Ox Delivery Rate 07/07 2200 99.3 105 20 112/80 95 Room Air 07/07 1659 99.3 102 20 122/76 98 07/07 1250 98.7 110 20 114/75 98 Room Air 07/07 1100 94 102/60 07/07 1017 98.3 103 20 125/76 97 Room Air Intake & Output 07/08 0800 / 0000 07/07 1600 Intake Total 1000 1100 1000 Output Total Balance 1000 1100 1000 Intake, IV [phone] Intake, Oral 200 300 0 Patient 74.843 kg Weight Weight Reported by Patient Measurement Method Physical Exam General Appearance: Alert, Oriented X3, Cooperative Cardiovascular: Regular Rate, Normal S1, Normal S2, No Murmurs Lungs: Clear to Auscultation, Normal Air Movement Abdomen: Normal Bowel Sounds, Soft, No Tenderness Other Physical Findings: Skin No Significant Lesion, echymotic areas around left eye, non worsening compared to yesterday. Skin Temp/Moisture Exam: Warm/Dry Sepsis Skin Exam (color): Normal for Ethnicity HEENT PERRLA, ecchymosis around the left eye bwith no worsening discoloration or edema or swelling, rest of neck is atruamatic Neck Supple, No JVD Lymphatic Cervical nl Cardiovascular Regular Rate, Normal S1, Normal S2, No Murmurs Lungs Clear to Auscultation, Normal Air Movement Abdomen Normal Bowel Sounds, Soft, No Tenderness Neurological Normal Gait, Normal Speech, Strength at 5/5 X4 Ext, Sensation Intact, Cranial Nerves 3-12 NL, Reflexes 2+ Extremities No Clubbing, No Cyanosis Vascular Normal Pulses, Pulses Symmetrical Assessment/Plan Assessment: 61 yo lady with no past cardiac medical history presents for evaluation of a syncopal event which was preceeded by 4 hours of gastroeneteritis symptoms of nausea and vomiting. No conduction abnormalities or arythmia noted in repeat ekg and telemetry monitrs o/n. Syncopal event resulted in head/neck trauma due to the fall. CT head negative for any acute bleed or fracture, [facility] CT neck was remarkable for c4-c5 stable fracture. Impression * Syncope. * Head trauma secondary to fall. * Cervical spine fracture. C4 spinous process and C5 spinous process which is small spinous process avulsion fracture fragment posteriorly. * Nausea, vomiting and diarrhea; probably due to gastroenteritis. * Prerenal azotemia * Thyroid nodule with normal TSH Plan Pt is stable today, ambulating well without any repot of dizziness,neuro changes or any more syncopal episodes. No acute event reported on telemetry monitoring in the past 24 hrs. Spoke with cardiology (Dr Lane) who feels that he is stable for discharge from cardiac point of view. Her repeat CT is unremarkable for any bleed or fracture. She will be going home with the hard collar for her C4-C5 compression fractures. She does not want any pain meds prescribed, she wants to manage the pain with OTC meds. She is to f/u with Dr Aquino on her fracture mangament. Regarding the incidentgal finding of aa thyroid nodule, her TSH is normal. She will need follow up with an u/s on outpatient basis, This was communicated to the patient and will also be indicated specifically on the discharge summary. Problem List: 1. Nausea vomiting and diarrhea 2. Syncope 3. C5 vertebral fracture 4. C4 cervical fracture Pain Ratin Pain Location: neck Pain Goal: Remain pain free Pain Plan: per pathway Tomorrow's Labs & Rationales: none-discharge James Nava MD 07/08/17 1327: Attending MD Review Statement Attending Statement Attending MD Statement: examined this patient, discuss w/resident/PA/WASHING MACHINE MECHANIC, agreed w/resident/PA/WASHING MACHINE MECHANIC, reviewed EMR data (avail), discussed with nursing, discussed with case mgmt, amended to note Attending Assessment/Plan: Patient seen and examined. Ambulating freely around the unit and not in any distress. Denies headache or blurry vision. On examination she has no focal neurologic deficit. The ecchymotic area on the her left eye is unchanged. She continues to use her heart:. She had no events on telemetry monitoring overnight. Heart sounds remain regular with no audible murmur. Laboratory data today shows resolution of her prerenal azotemia. Her syncope was likely vasovagal event aggravated by her dehydration. She had no events on telemetry monitoring. Repeat head CT today shows no changes compared to yesterday's imaging. Awaiting evaluation by the cardiology service today. If no further recommendations he may be discharged home today and follow-up as an outpatient. She will have her neck collar in place and follow-up with a the neurosurgery service. She was incidentally noted to have a thyroid nodule I will follow-up with her primary care provider as an outpatient.
--- NOTE | 2017-07-08 09:27 | Discharge Summary ---
Hospital Course Allergies: Coded Allergies: No Known Allergies (07/07/17) Disposition Summary Disposition Principal Diagnosis: Syncope. Fall with head trauma. C4-C5 spinous process fracture. Attending MD Review Statement Documenting Attending: James Nava MD Other Findings: Patient to follow-up with the neurosurgery service as an outpatient.
--- NOTE | 2017-07-08 12:09 | CT SCAN REPORT ---
EXAMINATION: CT HEAD WITHOUT CONTRAST CLINICAL INFORMATION: Head trauma. Assess for interval changes. Left ecchymosis. COMPARISON: CT scan of the head 07/07/2017. TECHNIQUE: Contiguous axial imaging was performed from the skull base to vertex without intravenous administration of contrast. DLP: 620.93 mGy-cm FINDINGS: There is no evidence of acute intracranial hemorrhage or territorial infarction. No abnormal mass effect or midline shift is seen. Hdez to white matter differentiation is well preserved. No extra-axial fluid collections are identified. The ventricles are normal in size. There is no abnormal attenuation within the brain parenchyma. There are no large scalp contusions or hematomas. There are no acute osseous findings. There are degenerative changes of the bilateral temporomandibular joints. There are atheromatous calcifications of the cavernous internal carotid arteries. There is a small amount of debris in the right greater than left external auditory canals. The middle ear cavities are well-aerated. The mastoid air cells and visualized paranasal sinuses are well-aerated. IMPRESSION: 1. There are no acute bleeds or territorial infarcts. 2. There are no acute osseous or soft tissue abnormalities.
--- NOTE | 2017-07-08 13:23 | Patient Discharge Instructions ---
Discharge Instructions General Discharge Information You were seen/treated for: Syncope (Loss of conciousness) Neck spine fracture Special Instructions: Please seek immediate medical attention if you experience another episode of "passing out". Please seek immediate medical attention if you develop increase neck pain. Please follow up with Dr Aquino within 2-3 weeks regarding follow up on your neck fracture Continue wearing your hard collar on the neck as instructed by Dr Aquino. Please follow up with your primary care within 1 week regarding workup for your thyroid nodule, which may include an Ultrasound and aspiration. Diet Recommended Diet: Regular Acute Coronary Syndrome Inclusion Criteria At DC or during hospital stay patient has or had the following: ACS DIAGNOSIS No Discharge Core Measures Meds if any: Prescribed or Continued at Discharge Meds if any: NOT Prescribed or Continued at Discharge Congestive Heart Failure Inclusion Criteria At DC or during hospital stay patient has or had the following: CHF DIAGNOSIS No Discharge Core Measures Meds if any: Prescribed or Continued at Discharge Meds if any: NOT Prescribed or Continued at Discharge Cerebrovascular accident Inclusion Criteria At DC or during hospital stay patient has or had the following: CVA/TIA Diagnosis No Discharge Core Measures Meds if any: Prescribed or Continued at Discharge Meds if any: NOT Prescribed or Continued at Discharge Venous thromboembolism Inclusion Criteria VTE Diagnosis No VTE Type NONE VTE Confirmed by (Test) NONE Discharge Core Measures - Per Current guidelines, there needs to be overlap - treatment for the first 5 days of Warfarin therapy. - If discharged on Warfarin prior to 5 days of - overlap therapy, the patient will need to be - assessed for post discharge needs including - *Post discharge parental anticoagulation - *Warfarin and/or parental anticoagulation education - *Follow up date to check INR post discharge At least 5 days overlap therapy as Inpatient No Meds if any: Prescribed or Continued at Discharge Note: Overlap Therapy is Warfarin and Anticoagulant Meds if any: NOT Prescribed or Continued at Discharge
== END 2017-07-08 15:30 | DRG 552 ==
LOC: ERH 07:07 → CMPBEDREQ 13:55 → 1NO 13:56 → ERHI 13:56 → ENRESERV 14:03 → ENTRNSPT 16:04 → 1NO 16:22 → EDTRNSPT 16:28 → CMPTRNSPT 16:40 → 1NO 07-08 08:28 → ENPENDDIS 07-08 14:05 → 1NO 07-08 15:30
PROVIDERS: Emergency Medicine; Physician Assistant Medical
DX: S12.301A Unspecified nondisplaced fracture of fourth cervical vertebra, initial encounter for closed fracture (principal); A08.4 Viral intestinal infection, unspecified; E86.0 Dehydration; K52.9 Noninfective gastroenteritis and colitis, unspecified; S12.400A Unspecified displaced fracture of fifth cervical vertebra, initial encounter for closed fracture; R55 Syncope and collapse; W18.30XA Fall on same level, unspecified, initial encounter; R79.89 Other specified abnormal findings of blood chemistry; E78.5 Hyperlipidemia, unspecified; E04.1 Nontoxic single thyroid nodule
CPT/HCPCS: 1NP; 36415; 71045; 74176; 81003; 82436; 87804; 87804-59; 93005; 93010; 93306; 93970; G0480; J0131; J1650; J1885; J2405